=== PATIENT | male | born 1985 | race Caucasian/White ===

== ENCOUNTER 2021-08-27 15:48 | Emergency (ER) | payer SELFPAY ==
[~2021-08-27] VITALS: Ht 182.9 cm; Wt 82.0 kg
[2021-08-27 18:30] VITALS: BP 128/74
== END 2021-08-27 19:15 | disposition home or self-care (01) ==
LOC: ER 15:48
DX: F10.10 Alcohol abuse, uncomplicated (principal); I49.9 Cardiac arrhythmia, unspecified; Y90.9 Presence of alcohol in blood, level not specified
CPT/HCPCS: 93005; 99283